=== PATIENT | male | born 1995 | race Caucasian/White ===

== ENCOUNTER 2017-07-15 01:51 | Emergency (ER) | payer SELFPAY ==
[~2017-07-15] VITALS: Ht 175.3 cm; Wt 72.6 kg
[2017-07-15] MEDS ORDERED: Naloxone 1mg/ml 2ml IVP ONE (02:15)
[2017-07-15 02:47] LABS: BASOPHILS % (AUTO) 0.7 % (0.0-2.0); EOSINOPHILS % (AUTO) 1.2 % (0.0-3.0); HEMATOCRIT 37.9 % (42.0-52.0); HEMOGLOBIN 14.6 G/DL (14.2-18.0); MEAN CORPUSCULAR VOLUME 87 FL (80-99); MONOCYTES % (AUTO) 8.8 % (1.0-10.0); NEUTROPHILS % (AUTO) 59.3 % (45.0-75.0); PLATELET COUNT 258 K/UL (150-450); RED BLOOD COUNT 4.36 M/UL (4.70-6.10); RED CELL DISTRIBUTION WIDTH 9.4 % (11.6-14.8); WHITE BLOOD COUNT 6.1 K/UL (4.8-10.8)
[2017-07-15 02:49] VITALS: BP 110/61
[2017-07-15 02:54] LABS: BLOOD UREA NITROGEN 6 mg/dL (7-18); POTASSIUM 3.4 MMOL/L (3.5-5.1)
[2017-07-15 02:56] LABS: ANION GAP 10 mmol/L (5-15); CALCIUM 8.8 MG/DL (8.5-10.1); CARBON DIOXIDE 25 MMOL/L (21-32); CHLORIDE 96 MMOL/L (98-107); CREATININE 0.9 MG/DL (0.55-1.30); SODIUM 131 MMOL/L (136-145)
[2017-07-15 03:00] LABS: ALANINE AMINOTRANSFERASE 23 U/L (12-78); ALBUMIN 4.4 G/DL (3.4-5.0); ALBUMIN/GLOBULIN RATIO 1.5 (1.0-2.7); ALKALINE PHOSPHATASE 47 U/L (46-116); ASPARTATE AMINO TRANSFERASE 19 U/L (15-37); BILIRUBIN,TOTAL 0.6 MG/DL (0.2-1.0)
--- NOTE | 2017-07-15 03:34 | Emergency Room Report ---
History of Present Illness General Chief Complaint: Altered Level of Consciousness Source: Friend, EMS Present Illness HPI Patient presents from paramedics Friend contacted paramedics as the patient had become altered Vomiting Patient's friend describes extensive history from today they had come in from [place] Patient from the morning time had started taking what he called [place] pills does sound to have Valium Later on patient had been drinking They also did what the friend calls poppers Nasal inhalers Patient drank more later on And essentially when they went out it was reported that the patient began vomiting as well and appeared weak and paramedics were summoned Patient presents nonverbal he is responsive to physical stimuli however history of present illness does remain significantly limited Allergies: Coded Allergies: No Known Allergies (Unverified , 07/15/17) Patient History Past Medical History: see triage record Pertinent Family History: none Reviewed Nursing Documentation: PMH: Agreed; PSxH: Agreed Nursing Documentation-PMH Past Medical History: No Stated History Review of Systems All Other Systems: limited - Other than the ones mentioned in the history of present illness all others are reviewed however they do stay limited due to the patient's mental status Physical Exam Vital Signs Date Time Temp Pulse Resp B/P (MAP) Pulse Ox O2 Delivery O2 Flow Rate FiO2 07/15/17 01:51 97.8 74 16 134/76 100 Room Air 97.9 Sp02 EP Interpretation: reviewed, normal General Appearance: no apparent distress Head: normocephalic, atraumatic Eyes: bilateral eye PERRL ENT: normal pharynx, no angioedema, dry mucus membranes Neck: supple Respiratory: chest non-tender, lungs clear, no retraction, no accessory muscle use Cardiovascular #1: no edema, no gallop Gastrointestinal: non tender, soft, no mass Musculoskeletal: other - Patient does not follow commands however withdrawing from physical stimuli, no obvious focal deficit Neurologic: responsive - 2 physical stimuli maintaining appropriate gag reflex , however decreased responsiveness, Skin: normal color, no rash Lymphatic: no adenopathy Medical Decision Making Diagnostic Impression: Primary Impression: Altered level of consciousness Additional Impression: Drug abuse ER Course Patient is complex with multiple differentials including but not limited to neurological Electrolyte, infectious Patient had fairly extended stay in the emergency room Extensive blood work was initiated Patient has significantly improved over time at this time awake alert and ambulatory appears to have had reaction to the multidrug ingestion and is otherwise stable for close outpatient follow-up Please note that there was denied it was any suicidal or homicidal thoughts And this appeared to be essentially recreational Labs Test 07/15/17 02:25 White Blood Count 6.1 K/UL (4.8-10.8) Red Blood Count 4.36 M/UL (4.70-6.10) Hemoglobin 14.6 G/DL (14.2-18.0) Hematocrit 37.9 % (42.0-52.0) Mean Corpuscular Volume 87 FL (80-99) Mean Corpuscular Hemoglobin 33.5 PG (27.0-31.0) Mean Corpuscular Hemoglobin Concent 38.5 G/DL (32.0-36.0) Red Cell Distribution Width 9.4 % (11.6-14.8) Platelet Count 258 K/UL (150-450) Mean Platelet Volume 7.5 FL (6.5-10.1) Neutrophils (%) (Auto) 59.3 % (45.0-75.0) Lymphocytes (%) (Auto) 30.0 % (20.0-45.0) Monocytes (%) (Auto) 8.8 % (1.0-10.0) Eosinophils (%) (Auto) 1.2 % (0.0-3.0) Basophils (%) (Auto) 0.7 % (0.0-2.0) Sodium Level 131 MMOL/L (136-145) Potassium Level 3.4 MMOL/L (3.5-5.1) Chloride Level 96 MMOL/L (98-107) Carbon Dioxide Level 25 MMOL/L (21-32) Anion Gap 10 mmol/L (5-15) Blood Urea Nitrogen 6 mg/dL (7-18) Creatinine 0.9 MG/DL (0.55-1.30) Estimat Glomerular Filtration Rate > 60 mL/min (>60) Glucose Level 106 MG/DL (74-106) Calcium Level 8.8 MG/DL (8.5-10.1) Total Bilirubin 0.6 MG/DL (0.2-1.0) Aspartate Amino Transf (AST/SGOT) 19 U/L (15-37) Alanine Aminotransferase (ALT/SGPT) 23 U/L (12-78) Alkaline Phosphatase 47 U/L (46-116) Total Protein 7.4 G/DL (6.4-8.2) Albumin 4.4 G/DL (3.4-5.0) Globulin 3.0 g/dL Albumin/Globulin Ratio 1.5 (1.0-2.7) Salicylates Level 0.3 ug/mL (2.8-20) Urine Opiates Screen Negative (NEGATIVE) Acetaminophen Level < 2 MCG/ML (10-30) Urine Barbiturates Screen Negative (NEGATIVE) Phencyclidine (PCP) Screen Negative (NEGATIVE) Urine Amphetamines Screen Negative (NEGATIVE) Urine Benzodiazepines Screen Positive (NEGATIVE) Urine Cocaine Screen Negative (NEGATIVE) Urine Marijuana (THC) Screen Negative (NEGATIVE) Serum Alcohol 102 mg/dL Rhythm Strip Diag. Results EP Interpretation: yes Rate: 66 Rhythm: NSR, no PVC's, no ectopy Last Vital Signs Date Time Temp Pulse Resp B/P (MAP) Pulse Ox O2 Delivery O2 Flow Rate FiO2 07/15/17 02:49 97.9 78 19 110/61 100 Room Air 97.9 Status: improved Disposition: HOME, SELF-CARE Condition: Improved Referrals: NOT CHOSEN IPA/MD,REFERRING (PCP) Additional Instructions: Patient is provided with the discharge instructions notified to follow up with primary doctor in the next 2-3 days otherwise return to the er with any worsening symptoms. Please note that this report is being documented using [email or web address] technology. This can lead to erroneous entry secondary to incorrect interpretation by the dictating instrument. Caden Golden DO Jul 15, 2017 03:34
[2017-07-15 04:45] VITALS: BP 100/56
[2017-07-15 05:30] VITALS: BP 98/59
== END 2017-07-15 05:46 | disposition home or self-care (01) ==
LOC: EDBD 01:51 → EMR 02:12
DX: R41.82 Altered mental status, unspecified (principal); F19.10 Other psychoactive substance abuse, uncomplicated; R11.10 Vomiting, unspecified
CPT/HCPCS: 36415; 80053; 80307; 85025; 96374; 96375; 99283; G0480; J2310; 80329